=== PATIENT | male | born 2005 | race Caucasian/White ===

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

== ENCOUNTER 2024-03-06 13:30 | Emergency (ER) | payer MEDICAID, SELFPAY ==
--- NOTE | 2024-03-06 13:33 | XR_ITS ---
WS: [id number] Left knee, 3 views, 03/06/2024 Clinical Data: injury Comparison: None. Findings: No fractures or dislocations are seen. The joint spaces are normal. The patella is intact. The soft t issues are unremarkable. XR/XR knee LT 3V* [id number] Impression: Negative left knee. Kellgren-Marquis Classification: grade 0 (none): definite absence of x-ray luciana nges of osteoarthritis
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
[2024-03-06 14:31] VITALS: BP 131/81
--- NOTE | 2024-03-08 08:25 | DCPLANNER ---
Sent followup request to ortho 03/08/24 [id number]
== END 2024-03-06 14:32 | disposition home or self-care (01) ==
PROVIDERS: Emergency Provider Nurse Practitioner Family; PCP Pediatrics Adolescent Medicine
DX: S80.212A Abrasion, left knee, initial encounter (principal); V00.131A Fall from skateboard, initial encounter
CPT/HCPCS: 73562; 99283